=== PATIENT | female | born 1955 | race Caucasian/White ===

== ENCOUNTER → 2018-07-05 | Outpatient (CLI) | payer OTHER ==
--- NOTE | 2018-07-05 18:28 | RADIOLOGY IMAGING REPORT ---
FACILITY: [facility] - [place] PATIENT NAME: Clarissa Oreilly : 1955 MR: [id number] V: [id number] EXAM DATE: ORDERING PHYSICIAN: MARGARET SMITH TECHNOLOGIST: Location: [facility] Patient: Clarissa Oreilly : 1955 Visit/Account:[id number] Date of Sevice: 07/05/2018 THYROID HISTORY: Hypothyroidism history of thyroid ablation, on Synthroid COMPARISON: None. FINDINGS: SIZE: Right lobe: 3.1 x 0.6 x 0.5 cm Left lobe: 1.2 x 0.4 x 0.5 cm Isthmus: mm PARENCHYMA: Heterogeneous bilaterally NODULES: Right lobe: * None discrete. Left lobe: * None discrete. Isthmus: * None discrete. VASCULARITY: The right lobe appeared hypervascular and the left lobe appeared hypovascular ADDITIONAL FINDINGS: None. IMPRESSION: Very small atrophic heterogeneous appearing thyroid gland REFERENCE: 2015 [place] [employer] Management Guidelines for Adult Patients with Thyroid Nodules and D ifferentiated Thyroid Cancer: The [place] [employer] Guidelines Task Force on Thyroid Nodul es and Differentiated Thyroid Cancer. SONOGRAPHIC PATTERNS: * Benign: Purely cystic nodules (no solid component); estimated risk of malignancy <1 percent; no bi opsy recommended. * Very Low Suspicion: Spongiform or partially cystic nodules without any of the sonographic features Described in low, intermediate, or high suspicion patterns; estimated risk of malignancy <3 percent; consider FNA at > 2 cm (Observation without FNA is also a reasonable option). * Low Suspicion: Isoechoic or hyperechoic solid nodule, or partially cystic nodule with eccentric so lid areas, without microcalcification, irregular margin or ETE (extra-thyroidal extension), or taller than wide shape; estimated risk of malignancy 5-10 percent; recommend FNA at >1.5 cm. * Intermediate Suspicion: Hypoechoic solid nodule with smooth margins without microcalcifications, E TE (extra-thyroidal extension), or taller than wide shape; estimated risk of malignancy 10-20 percent ; recommend FNA at > 1 cm. * High Suspicion: Solid hypoechoic nodule or solid hypoechoic component of a partially cystic nodule with one or more of the following features: irregular margins (infiltrative, microlobulated), microc alcifications, taller than wide shape, rim calcifications with small extrusive soft tissue component, evidence of ETE (extra-thyroidal extension); estimated risk of malignancy >70-90 percent; recommend FNA at > 1 cm. NOTES: * Although a sonographically suspicious subcentimeter thyroid nodule without evidence of extrathyroi zoran extension or sonographically suspicious lymph nodes may be observed with close sonographic follow -up rather than pursuing immediate FNA, patient age and preference may modify decision-making. A > 50% interval increase in nodule volume and/or development of new suspicious sonographic features are felt to be a valid reasons for potential re-aspiration of a nodule previously shown to have benig n FNA cytology. Report Dictated By: Alix Cage MD at 07/05/2018 6:22 PM Report E-Signed By: Alix Cage MD at 07/05/2018 6:24 PM WSN:[id number]
== END ==
LOC: US 04:49
PROVIDERS: ATTEND Family Medicine
DX: E03.9 Hypothyroidism, unspecified (principal)
CPT/HCPCS: 76536

== ENCOUNTER → 2018-10-04 | Outpatient (CLI) | payer OTHER ==
--- NOTE | 2018-10-04 12:49 | RADIOLOGY IMAGING REPORT ---
FACILITY: [facility] - [place] PATIENT NAME: Clarissa Oreilly : 1955 MR: [id number] V: [id number] EXAM DATE: ORDERING PHYSICIAN: MARGARET SMITH TECHNOLOGIST: Location: [facility] [place] Patient: Clarissa Oreilly : 1955 Visit/Account:[id number] Date of Sevice: 10/04/2018 CHEST PA LAT HISTORY: Shortness of breath. COMPARISON: None FINDINGS: Cardiomediastinal contours: The heart size is normal. Lungs and pleura: There is no finding of an infiltrate, lymphadenopathy or pleural effusion. Bones/soft tissues: There are no findings of a fracture. IMPRESSION: Normal chest x-ray without findings of acute disease. Report Dictated By: Jose Barrios MD at 10/04/2018 12:44 PM Report E-Signed By: Jose Barrios MD at 10/04/2018 12:44 PM WSN:[email or web address]
== END ==
LOC: RAD 11:35
PROVIDERS: ATTEND Family Medicine
DX: R06.00 Dyspnea, unspecified (principal)
CPT/HCPCS: 71046

== ENCOUNTER → 2018-12-30 | Outpatient (REF) | payer OTHER | LOC: ZZSENDIN 09:56 | PROVIDERS: ATTEND Physician Assistant | DX: E03.9 Hypothyroidism, unspecified (principal) | CPT/HCPCS: 84439; 84443; 84481 ==

== ENCOUNTER → 2019-02-15 | Outpatient (CLI) | payer OTHER ==
--- NOTE | 2019-02-15 11:00 | RADIOLOGY IMAGING REPORT ---
FACILITY: [facility] PATIENT NAME: Clarissa Oreilly : 1955 MR: [id number] V: [id number] EXAM DATE: ORDERING PHYSICIAN: DAVID SANCHEZ TECHNOLOGIST: Location: [facility] [place] Patient: Clarissa Oreilly : 1955 Visit/Account:[id number] Date of Sevice: 02/15/2019 Clinical history: Menopausal. Screening. Comparison: 03/03/2003. LUMBAR SPINE: The bone mineral density (BMD) measured from L1-L4 correlates with a Z-score of 0.7 and a T-score of -1.1 which is osteopenia as defined by the World Health Organization. The corresponding risk of frac ture in the lumbar spine is increased 2-3 times compared with a young adult reference population. Th is value has decreased by 15.8 % since the prior study. More than 5% change is considered significan t. HIP: Bone mineral density (BMD) measured in the left Total Hip region correlates with a Z-score of -0.6 an d a T-score of -2.0 which is osteopenia as defined by the World Health Organization. The correspondi ng risk of fracture in the hip is increased 4 times compared with a young adult reference population. This value has decreased by 30.2 % since the prior study. More than 5% change is considered signif icant. Bone mineral density (BMD) measured in the left femoral neck correlates with a Z-score of -0.2 and a T-score of -1.8 which is osteopenia as defined by the World Health Organization. The corresponding r isk of fracture in the hip is increased 3-4 times compared with a young adult reference population. V alues from the prior study are not available so changes in bone mineral density of the femoral neck c annot be assessed. Bone mineral density (BMD) measured in the left Femoral Neck region measures 0.786 g/cm2. IMPRESSION: 1. Lumbar spine: Osteopenia. There has been significant decrease in the bone mineral density since the previous exam. 2. Left total hip: Osteopenia. There has been significant decrease in the bone mineral density since the previous exam. 3. Left Femoral Neck: Osteopenia. Numerical data from the prior study is unavailable so changes in b one mineral density cannot be assessed. 4. Left femoral neck bone mineral density: 0.786 g/cm2. The next DEXA scan of this patient should include the following sites: Lumbar spine and left hip. FRAX(R) WHO Fracture Risk Assessment Tool link: http://www.shef.ac.uk/FRAX/tool.jsp?locationValue=9 PLEASE NOTE: 1) The World Health Organization defines low BMD as follows: T-score Normal > -1 Osteopenia < -1 and > -2.5 Osteoporosis < -2.5 without fractures Established osteoporosis < -2.5 with fractures 2) In general, you may wish to consider: Diagnosis Treatment Follow-up DEXA Normal BMD Prevention 2-3 years Osteopenia Prevention/therapy 1-2 years Osteoporosis Therapy Yearly 3) Fracture risk estimated from the T-score is more accurate for vertebral fractures (often spontane ous) than for hip fractures Report Dictated By: Neeta Joy MD at 02/15/2019 10:46 AM Report E-Signed By: Neeta Joy MD at 02/15/2019 10:52 AM SHAYYN:[email or web address]
--- NOTE | 2019-02-16 15:55 | RADIOLOGY IMAGING REPORT ---
FACILITY: [facility] PATIENT NAME: KIKO WASHINGTON : [id number] MR: [id number] V: [id number] EXAM DATE: [id number] ORDERING PHYSICIAN: DAVID SANCHEZ TECHNOLOGIST: Ni Arce PROCEDURE: BILATERAL DIGITAL SCREENING MAMMOGRAM WITH CAD ASSISTED INTERPRETATION & 3D TOMOSYNTHESIS. REASON FOR STUDY: Screening. COMPARISON: None. VIEWS OBTAINED: 2D & 3D full field CC & MLO projections. BREAST DENSITY: Breast tissue demonstrates scattered fibroglandular tissue elements. MAMMOGRAM FINDINGS: Benign calcifications of both breasts are seen. There is no suspicious mass, calcification or architectural distortion. IMPRESSION: BIRADS 2: Benign finding. DIAGNOSTIC CATEGORY 2--BENIGN FINDING. RECOMMENDATIONS: ROUTINE MAMMOGRAM AND CLINICAL EVALUATION IN 1YR. Dictated by: Bautista Null M.D. on 02/16/2019 at 12:20 Transcribed by: PEBBLES on 02/16/2019 at 14:06 Approved by: Bautista Null M.D. on 02/16/2019 at 15:51 [facility]
== END ==
LOC: MAMO 09:37
PROVIDERS: ATTEND Physician Assistant
DX: Z12.31 Encounter for screening mammogram for malignant neoplasm of breast (principal); M85.88 Other specified disorders of bone density and structure, other site
CPT/HCPCS: 77063; 77067; 77080

== ENCOUNTER → 2019-03-07 | Outpatient (REF) | payer OTHER | LOC: ZZSENDIN 15:02 | PROVIDERS: ATTEND Family Medicine | DX: E03.9 Hypothyroidism, unspecified (principal) | CPT/HCPCS: 82306; 82607; 84439; 84443 ==